=== PATIENT | female | born 1990 | race Caucasian/White ===

== ENCOUNTER 2023-09-24 12:33 | Emergency (ER) | payer OTHER, SELFPAY ==
[2023-09-24 12:43] VITALS: BP 133/84; PULSE 88; RESP 16; TEMP 36.6; O2SAT 100
--- NOTE | 2023-09-24 13:47 | ED.FEMALEGU ---
HPI - Female Genitourinary General Chief complaint: Urogenital-Female Stated complaint: urinary issue Time Seen by Provider: 09/24/23 13:47 Source: patient Mode of arrival: ambulatory Limitations: no limitations History of Present Illness HPI Narrative: 33 yo F presents with c/o dysuria, urgency, frequency for 3 days. Afebrile. No ABD or back pain. denies nausea vomiting. started [id number] azo yesterday. All systems reviewed and negative except as noted above. Related Data Home Medications Medication Instructions Recorded Confirmed buspirone 10 mg tablet 10 mg PO BID 09/24/23 09/24/23 epinephrine 0.1 mg/0.1 mL 09/24/23 injection, auto-injector etonogestrel 0.12 mg-ethinyl vag ring vaginal 09/24/23 estradiol 0.015 mg/24 hr vaginal ring (NuvaRing) Allergies Allergy/AdvReac Type Severity Reaction Status Date / Time Penicillins Allergy Hives Verified 09/24/23 13:09 prednisone Allergy Hives Verified 09/24/23 13:09 shellfish derived AdvReac Anaphylaxis Verified 09/24/23 13:09 Review of Systems Review of Systems: CONSTITUTIONAL: Denies fever, chills, or sweats. EYES: Denies visual changes, redness, or discharge. ENT: Denies rhinorrhea, congestion, sore throat, or otalgia. CARDIOVASCULAR: Denies chest pain, palpitations, or edema. RESPIRATORY: Denies cough or dyspnea. GASTROINTESTINAL: Denies abdominal pain, nausea, vomiting, or diarrhea. GENITOURINARY: Reports dysuria urgency, frequency. Denies hematuria. SKIN: Denies rash or itching. MUSCULOSKELETAL: Denies back pain, joint pain, or myalgia. NEUROLOGIC: Denies headache, numbness, or weakness. PSYCHIATRIC: Denies anxiety or depression. All other systems reviewed are negative, except as documented in HPI. PMFSH Comments At time of signature, agree with nursing past medical, surgical, social and family history. There is no relevant family history pertinent to the presenting complaint. Exam Narrative: GENERAL: This is a well-nourished, well-developed patient, in no apparent distress. HEAD: normocephalic, atraumatic. EYES: PERRL. Sclera clear/white. Vision is grossly intact. EARS: External ears normal NOSE: External nose normal NECK: Neck supple, non-tender without lymphadenopathy, masses or thyromegaly. CARDIOVASCULAR: Regular rate and rhythm without murmurs, gallops, or rubs. RESPIRATORY: Clear to auscultation. Breath sounds equal bilaterally. No wheezes, rales, or rhonchi. SKIN: warm, Dry, intact with no suspicious lesions or rash, good texture and turgor. NEURO: awake, alert, and oriented to person, place and time. There were no obvious focal neurologic abnormalities. EXTREMITIES: No joint tenderness, effusion, or edema noted. Course Course Level of Care: Express Care Visit Vital Signs Vital signs: Vital Signs Temperature 36.6 C 09/24/23 12:43 Pulse Rate 88 09/24/23 12:43 Respiratory Rate 16 09/24/23 12:43 Blood Pressure 133/84 09/24/23 12:43 Pulse Oximetry 100 09/24/23 12:43 Oxygen Delivery Room Air 09/24/23 12:43 Temperature 36.6 C 09/24/23 12:43 Pulse Rate 88 09/24/23 12:43 Respiratory Rate 16 09/24/23 12:43 Blood Pressure 133/84 09/24/23 12:43 Pulse Oximetry 100 09/24/23 12:43 Oxygen Delivery Room Air 09/24/23 12:43 Reviewed MDM - Female Genitourinary MDM Narrative Medical decision making narrative: Patient is aware of diagnosis, understands and agrees to treatment plan. Anticipatory guidance given. Patient agrees to follow-up as directed and is aware of reasons to seek care at the emergency department. Portions of this record may have been created with voice recognition software Differential Diagnosis Differential diagnosis: Likely urinary tract infection Lab Data Labs: Urine Glucose 1+ Reference Range: Negative Urine Bilirubin 1+
== END 2023-09-24 13:58 | disposition home or self-care (01) ==
PROVIDERS: Emergency Provider Nurse Practitioner Family
DX: N39.0 Urinary tract infection, site not specified (principal)
CPT/HCPCS: 81003; 87086; 87088; 99203; G0463

== ENCOUNTER 2025-06-29 01:00 | Emergency (ER) | payer OTHER, SELFPAY ==
[2025-06-29 01:05] VITALS: BP 155/107; PULSE 92; RESP 18; O2SAT 98
[2025-06-29 01:06] VITALS: BP 155/107; PULSE 92; RESP 18; TEMP 36.6; O2SAT 98
[2025-06-29 01:07] VITALS: O2SAT 98
[2025-06-29 01:11] VITALS: BP 161/107; O2SAT 96
[2025-06-29 01:25] LABS: BEDSIDEPREGUCG Negative (Negative)
[2025-06-29 01:26] LABS: Add Urine Microscopic? NO; Appearance Urine Clear (Clear); Glucose Urine UA Negative (Negative); Leukocyte Esterase Ur Negative LEU/UL (Negative); Nitrate Urine Negative (Negative); Specific Grav Ur 1.011 (1.001-1.035)
--- NOTE | 2025-06-29 01:59 | ED.FEMALEGU ---
HPI - Female Genitourinary General Chief complaint: Urogenital-Female Stated complaint: i have a uti Time Seen by Provider: 06/29/25 01:51 History of Present Illness HPI Narrative: 34-year-old otherwise healthy female with a history of recurrent urinary tract infections presenting with dysuria. She states she has a burning with urination. States that the burning is around her urethra. Patient thinks this is a urinary tract infection as she has had these frequently and present very similar each time. She states that her infections get to the point that she has blood and blood clots. Denies any traumatic injuries. No systemic features such as fever, chills, nausea. Has not tried anything so far. Previously prescribed Bactrim with success. Related Data Home Medications ?Medication ?Instructions ?Recorded ?Confirmed ?Last Taken ?Type buspirone 10 mg tablet 10 mg PO BID 09/24/23 09/24/23 Unknown History epinephrine 0.1 mg/0.1 mL 09/24/23 Unknown History injection, auto-injector etonogestrel 0.12 mg-ethinyl vag ring vaginal 09/24/23 Unknown History estradiol 0.015 mg/24 hr vaginal ring (NuvaRing) Allergies Allergy/AdvReac Type Severity Reaction Status Date / Time shellfish derived Allergy Severe Anaphylaxis Verified 06/29/25 01:11 Penicillins Allergy Mild Hives Verified 06/29/25 01:11 prednisone Allergy Mild Hives Verified 06/29/25 01:11 Exam Narrative: GENERAL: Well-appearing, not in any distress HEAD: Normocephalic, atraumatic EYES: PERRLA ENT: Nares clear, no rhinorrhea or epistaxis. Mucous membranes moist. NECK: Supple. CHEST: Symmetric chest rise, no respiratory distress ABDOMEN: No distension NEURO: Awake alert oriented, no deficits Course Vital Signs Vital signs: Vital Signs Pulse Rate 92 06/29/25 01:05 Respiratory Rate 18 06/29/25 01:05 Blood Pressure 155/107 H 06/29/25 01:05 Pulse Oximetry 98 06/29/25 01:05 Oxygen Delivery Room Air 06/29/25 01:05 Temperature 36.6 C 06/29/25 01:06 Pulse Rate 92 06/29/25 01:06 Respiratory Rate 18 06/29/25 01:06 Blood Pressure 161/107 H 06/29/25 01:11 Pulse Oximetry 96 06/29/25 01:11 Oxygen Delivery Room Air 06/29/25 01:05 MDM - Female Genitourinary MDM Narrative Medical decision making narrative: 34-year-old otherwise healthy female with a history of recurrent urinary tract infections presenting with dysuria. She states she has a burning with urination. States that the burning is around her urethra. Patient thinks this is a urinary tract infection as she has had these frequently and present very similar each time. She states that her infections get to the point that she has blood and blood clots. Denies any traumatic injuries. No systemic features such as fever, chills, nausea. Has not tried anything so far. Previously prescribed Bactrim with success. Urinalysis and urine test ordered. Urinalysis is largely unremarkable. test is negative. Did discuss the urine being unremarkable with the patient and she states that her symptoms are consistent with her previous UTIs and would like to be on Bactrim to treat this. Provided this and she was safe for discharge with PCP follow-up. Medical Records Attestation: I reviewed the patient's medical records. Lab Data Attestation: I reviewed the patient's lab results. Labs: Lab Results 06/29/25 06/29/25 Range/Units 01:19 01:23 Urine Color Yellow (Yellow) Urine Appearance Clear (Clear) Urine pH 7.0 (5.0-9.0) Ur Specific [place] 1.011 (1.001-1.035) Urine Protein Negative (Negative) mg/dL Urine Glucose (UA) Negative (Negative) mg/dL Urine Ketones Negative (Negative) mg/dL Ur Blood (Man) Negative (Negative) Urine Nitrate Negative (Negative) Urine Bilirubin Negative (Negative) Urine Urobilinogen 0.2 (<2.0) mg/dL Leukocyte Esterase Rfl Negative (Negative) DB/UL POC Urine HCG, Qual Negative (Negative) Discharge Plan Discharge Clinical Impression: Dysuria, History of frequent urinary tract infections Patient Disposition: Home Condition: Stable Instructions: Antibiotic Form, Dysuria (ED) Additional Instructions: Symptoms sound consistent with your normal urinary tract infections. Urinalysis does not show any concerning findings at this juncture but we will treat this with antibiotics given the symptoms. Follow-up with your primary care provider. Referral for OBGYN if this is an increasing frequent concern. Return with any issues. Can take [id number] azo as well to help with the burning sensation while the antibiotics work. Patient Language: [place] Prescriptions: New sulfamethoxazole-trimethoprim [Bactrim DS] 800-160 mg tablet 1 tablet PO Q12H Qty: 14 0RF No Action fluconazole 150 mg tablet 150 mg PO ONCE 1 Days Qty: 1 0RF buspirone [BuSpar] 10 mg Tablet 10 mg PO BID etonogestrel-ethinyl estradiol [NuvaRing] 0.12-0.015 mg/24 hr Ring VAGINAL epinephrine 0.1 mg/0.1 mL Auto-Injector sulfamethoxazole-trimethoprim [Bactrim DS] 800-160 mg tablet 1 tablet PO Q12H 3 Days Qty: 6 0RF Follow-up/Referrals: [facility] [Primary Care Provider, Medical] Time of Disposition: 01:59
[2025-06-29] MEDS: SULFAMETHOXAZOLE/TRIMETHOPRIM 800/160 MG DS TABLET 1 TAB PO (02:09)
== END 2025-06-29 02:13 | disposition home or self-care (01) ==
PROVIDERS: Emergency Provider Student in an Organized Health Care Education/Training Program
DX: R30.0 Dysuria (principal)
CPT/HCPCS: 81003; 81025; 99283; A9270